=== PATIENT | female | born 2000 | race Two or more races ===

== ENCOUNTER 2024-09-29 06:19 | Inpatient (IN) | payer MEDICAID, SELFPAY ==
[2024-09-29] VITALS (18 sets, daily range): BP systolic 113–131; BP diastolic 63–97; PULSE 58–88; RESP 15–99; TEMP 36.6–36.8; O2SAT 97–99; BMI 29.5
[2024-09-29] MEDS: OXYTOCIN in NS 20 units 20 UNIT/1,000 ML BAG 125 UNIT IV (06:49)
[2024-09-29] MEDS: TRANEXAMIC ACID 1,000 MG IVPB 1,000 MG/100 ML BAG 200 MG IV (07:03)
[2024-09-29] MEDS: IBUPROFEN TAB 400 MG TABLET 800 MG PO ×2 (07:04→23:16)
[2024-09-29] MEDS: LIDOCAINE HCL 1% 20 ML VIAL INFL (07:04)
[2024-09-29] MEDS: BENZO/LANO/ALOE (Dermoplast) 60 GM CAN 1 SPRAY TOP (07:04)
--- NOTE | 2024-09-29 07:09 | PD.LDHP ---
Documentation for date of: 09/29/24 OB Labor/Induct. HPI History of Present Illness : 2 Para: 2 Term pregnancies: 1 pregnancies: 0 Living children: 1 History of Abortions: Spontaneous and Elective: 0 History of Vaginal deliveries: 1 History of sections: No History of : No Date of last menstrual period: 11/22/23 ROSANA: 10/23/24 Gestational Age (weeks): 36 Gestational Age (days): 4 Gestational age based on last menstrual period: 43 History of present illness: 23-year-old 2 para 1-0-0-1 at 36 weeks and 4 days with estimated due date of 10/23/2024 presents to labor and delivery triage with contractions that started at 4 AM this morning with subsequent spontaneous rupture of membranes at 4:30 AM. Patient received care at [facility] in then followed by Delia Mcfarland at the [facility] clinic. Available records that are scanned into the chart were reviewed. She has a history of a full-term vaginal delivery. History of Present Dating criteria: based on 1st trimester US only Adequate Care: Yes Labs Maternal Blood Type: B Pos Labs: Negative: RPR, Hepatitis B, Rubella Titre, HIV, Chlamydia and Gonorrhea and Unknown: Herpes Type 1, Herpes Type 2, Group Beta Strep and Covid-19 Review of Systems Review of Systems Systems Reviewed: All systems reviewed, normal except as documented Past Medical History Surgical History SURGICAL: Negative Section Meds Home Medications and Allergies Allergies Allergy/AdvReac Type Severity Reaction Status Date / Time No Known Allergies Allergy Verified 09/29/24 06:25 OB Exam Physical Exam Vital signs: Temp Pulse Resp BP Pulse Ox 97.8 F 85 18 119/76 98 09/29/24 06:24 09/29/24 07:04 09/29/24 06:24 09/29/24 07:04 09/29/24 06:29 Constitutional Constitutional: no acute distress Routine HEENT Exam Head: Present normocephalic and atraumatic Eye: Present EOMI and PERRL ENT: Present mucous membranes moist Routine Neck Exam Neck: Present supple and trachea midline Routine Cardiovascular Exam Cardiovascular: Present RRR Routine Abdominal Exam Abdominal: Present soft and normoactive bowel sounds Detailed Labor and Delivery Exam Dilation (cm): 10 Effacement (%): 0 Cervix position: mid station: +2 Consistency: soft Presentation: Vertex Baseline heart rate: 145 monitor accelerations: 15x15 monitor decelerations: None FPC variability: Average (6-10) Contraction frequency (min): 3 Tachysystole: No Routine Extremities Exam Extremities: Present full ROM Routine Skin Exam Skin: Present intact, dry and warm Routine Neurological Exam Neurological: Present alert, oriented X3 and CN II-XII intact Routine Psychiatric Exam Psychiatric: Present normal affect and normal thought process OB Assessment & Plan Assessment and Plan (1) Precipitous delivery: Status: Acute Assessment and plan: Admit to inpatient for labor, status post precipitous delivery Routine care to continue
--- NOTE | 2024-09-29 07:14 | PD.LDDELS ---
Data ([place]) Data Hx Section: No : 2 Term: 1 : 0 Livin Abortions: Spontaneous & Theraputic: 0 Delivery Data ([place]) Labor Data ROM date: 09/29/24 ROM time: 04:30 Amniotic membrane rupture type: Spontaneous Amniotic fluid description: Clear Delivery Data Onset of labor date: 09/29/24 Onset of labor time: 04:00 Complete dilation date: 09/29/24 Complete dilation time: 06:35 [place] delivery date: 09/29/24 [place] delivery time: 06:47 Placenta delivery date: 09/29/24 Placenta delivery time: 06:49 Stage 1 total time: Labor - Stage 1 Duration 2 hours and 35 minutes Delivered by: TABBY Delivery Method Presentation: Vertex
[2024-09-29 07:35] LABS: Basophils % (Auto) 0 % (0-2.5); Eosinophils % (Auto) 0 % (0-10); Hematocrit 37.6 % (36.0-46.0); Hemoglobin 13.3 g/dL (12.0-16.0); Immature Granulocytes % (Auto) 0 % (0-0); Immature Granulocytes Auto 0.04 Thou/mm3 (0.00-0.00); Lymphocytes # (Auto) 2.5 Thou/mm3 (1.0-4.8); Lymphocytes % (Auto) 19 % (10-50); Mean Corpuscular HGB Conc 35.4 g/dl (31.0-37.0); Mean Corpuscular Hemoglobin 29.1 pg (25.0-35.0); Mean Corpuscular Volume 82 fL (80-100); Monocytes # (Auto) 0.8 Thou/mm3 (0.0-0.8); Monocytes % (Auto) 6 % (0-12); Neutrophils # (Auto) 9.7 Thou/mm3 (1.8-7.7); Neutrophils % (Auto) 74 % (37-80); Nucleated Red Blood Cell % 0 /100 WBC (0); Platelet Count 170 Thou/mm3 (140-440); RDW Standard Deviation 41.5 fL (36.4-46.3); Red Blood Count 4.57 Miln/mm3 (4.00-5.20); White Blood Count 13.1 Thou/mm3 (3.6-11.0)
[2024-09-29 08:18] LABS: Syphilis Nonreactive (Nonreactive)
[2024-09-29] MEDS: ACETAMINOPHEN 325 MG TABLET 650 MG PO (12:30)
[2024-09-29 16:17] LABS: Basophils % (Auto) 0 % (0-2.5); Eosinophils % (Auto) 0 % (0-10); Hematocrit 35.2 % (36.0-46.0); Immature Granulocytes % (Auto) 0 % (0-0); Immature Granulocytes Auto 0.06 Thou/mm3 (0.00-0.00); Lymphocytes # (Auto) 2.5 Thou/mm3 (1.0-4.8); Lymphocytes % (Auto) 18 % (10-50); Mean Corpuscular HGB Conc 34.1 g/dl (31.0-37.0); Mean Corpuscular Hemoglobin 29.1 pg (25.0-35.0); Mean Corpuscular Volume 85 fL (80-100); Monocytes % (Auto) 7 % (0-12); Neutrophils # (Auto) 10.3 Thou/mm3 (1.8-7.7); Neutrophils % (Auto) 75 % (37-80); Nucleated Red Blood Cell % 0 /100 WBC (0); Platelet Count 155 Thou/mm3 (140-440); RDW Standard Deviation 43.9 fL (36.4-46.3); Red Blood Count 4.13 Miln/mm3 (4.00-5.20); White Blood Count 13.8 Thou/mm3 (3.6-11.0)
[2024-09-30 04:00] VITALS: BP 104/65; PULSE 67; RESP 18; TEMP 36.8; O2SAT 97
[2024-09-30 08:00] VITALS: BP 102/64; PULSE 70; RESP 19; TEMP 36.4; O2SAT 98
[2024-09-30] MEDS: DOCUSATE SOD 100 MG CAPSULE PO (09:55)
[2024-09-30 12:00] VITALS: BP 103/71; PULSE 70; RESP 18; TEMP 36.5; O2SAT 98
--- NOTE | 2024-09-30 13:11 | PD.LDPPPRG ---
Subjective Subjective Interval history: no c/o pain, no dizziness. bonding,breast feeding Exam Vital Signs Temp Pulse Resp BP Pulse Ox O2 Del Method 97.7 F 70 18 103/71 98 Room Air 09/30/24 12:00 09/30/24 12:00 09/30/24 12:00 09/30/24 12:00 09/30/24 12:00 09/30/24 12:00 Narrative Exam Vital signs stable afebrile. Breasts are soft. Fundus firm below the umbilicus. Perineum intact no swelling. Small lochia. Uterus well involuted. 2+ DTRs. Objective Labs 09/29/24 15:20 Labs: Laboratory Results - last 24 hr 09/29/24 15:20 WBC 13.8 H RBC 4.13 Hgb 12.0 Hct 35.2 L MCV 85 MCH 29.1 MCHC 34.1 RDW Std Deviation 43.9 Plt Count 155 Neut % (Auto) 75 Lymph % (Auto) 18 Atkinson % (Auto) 7 Eos % (Auto) 0 Baso % (Auto) 0 Neut # (Auto) 10.3 H Lymph # (Auto) 2.5 Atkinson # (Auto) 1.0 H Eos # (Auto) 0.0 Baso # (Auto) 0.0 Immature Gran # (Auto) 0.06 H Absolute Nucleated RBC 0.00 Immature Gran % 0 Nucleated RBC % 0 Assessment & Plan Problem List (1) Precipitous delivery: Status: Acute Assessment Comment Assessment comment: 24 hr pp Plan Comment Plan Comment: Discharge home today. Okay to board with baby until discharge. Continue vitamins at home. Patient can take Tylenol or ibuprofen for pain. Discussed comfort measures for small perineal laceration. I discussed ER precautions and parameters. Discussed signs and symptoms of infection. Discussed danger signs and symptoms. Return to the clinic in 3 weeks for visit Time Spent With Patient Time: Total time spent is greater than 50% in coordination of care (as documented) at patient's floor/unit and/or counseling patient:
--- NOTE | 2024-09-30 13:14 | PD.LDDS ---
DS: Providers Provider Date of admission: 09/29/24 06:32 Primary care physician: Physician No Primary/Family Admitting Provider: Jorge Cuenca MD Attending Provider on Admission: Delia Mcfarland CNM Consults: 09/29/24 07:54 Referral Routine Comment: Attending Provider on DC: Delia Mcfarland CNM Discharging Provider: Delia Mcfarland CNM DS: Diagnosis Problem List Completed Was Problem List Reviewed/Reconciled?: Yes Summary/Hosp Course Brief History: 23-year-old 2 para 1-0-0-1 at 36 weeks and 4 days with estimated due date of 10/23/2024 presents to labor and delivery triage with contractions that started at 4 AM this morning with subsequent spontaneous rupture of membranes at 4:30 AM. Patient received care at [facility] in then followed by Delia Mcfarland at the [facility] [employer] [facility] [facility] clinic. Available records that are scanned into the chart were reviewed. She has a history of a full-term vaginal delivery. Peripartum Data Delivery Method: Normal Vaginal Delivery Episiotomy Description: None Laceration Description: yes (1st) Time Spent with Patient Time attestation: Total time spent providing and/or coordinating discharge services: Exam Vital Signs Temp Pulse Resp BP Pulse Ox O2 Del Method 97.7 F 70 18 103/71 98 Room Air 09/30/24 12:00 09/30/24 12:00 09/30/24 12:00 09/30/24 12:00 09/30/24 12:00 09/30/24 12:00 Discharge Plan Plan Patient Disposition: HOME (Self Care) Patient condition on transfer: Stable Prescriptions/Referrals Prescriptions/Med Rec: No Action No Known Home Medications Referrals: No Primary/Family,Physician [Primary Care Provider] - Patient/Caregiver Discharge Instructions Meds to Beds: No Discharge Activity: resume usual activities Print Language: Armenian Activity Restrictions/Additional Instructions: Discharge home today. Okay to board with baby. Continue vitamins. Discussed comfort measures for perineal laceration. Discussed danger signs and symptoms. I discussed ER precautions parameters. And discussed signs symptoms of infection. Return in 3 weeks to [facility]. Stand Alone Forms: [facility] Award Info., Patient Portal Info Letter Discharge Order Discharge Orders: Discharge (Routine); Ordered 09/30/24 Ordered By: Delia Mcfarland Planned Discharge Date 09/30/24
[2024-09-30] MEDS: HYDROcodone/APAP 5/325 TABLET 1 TAB PO (14:23)
== END 2024-09-30 14:29 | disposition home or self-care (01) | DRG 560 ==
LOC: S4SX 07:26 → S4NX 10:05
PROVIDERS: Admitting Provider Obstetrics & Gynecology; Visit Provider Advanced Practice Midwife
DX: O62.3 Precipitate labor (principal); Z37.0 Single live birth; Z3A.36 36 weeks gestation of pregnancy; O70.1 Second degree perineal laceration during delivery
CPT/HCPCS: 36415; 59409; 84112; 85025; 86780; 86850; 86900; 86901; 94762; J2590; J3490; A9270